=== PATIENT | female | born 1960 | race Caucasian/White ===

== ENCOUNTER 2024-08-15 20:56 | Outpatient (CLI) | payer MEDICARE, BC, SELFPAY | END 2024-08-15 20:57 | disposition home or self-care (01) | LOC: SLEEP 21:04 | PROVIDERS: PCP Family Medicine; Visit Provider Internal Medicine | DX: G47.33 Obstructive sleep apnea (adult) (pediatric) (principal); G25.81 Restless legs syndrome | CPT/HCPCS: 95810 ==